=== PATIENT | female | born 1955 | race Hispanic/Latino ===

== ENCOUNTER 2018-08-05 07:31 | Day surgery (SDC) | payer OTHER ==
[2018-08-04 15:12] VITALS: BP 143/73
[~2018-08-05] VITALS: Ht 161.3 cm; Wt 104.3 kg
[2018-08-05] VITALS (15 sets, daily range): BP systolic 118–140; BP diastolic 61–75
[~2018-08-05 07:31] MED LIST: ATOR40TA69 PO; CEFAZOLIN 3GM /D5W 100ML 100 ML IV SCH; FISH OIL PO; METF-444 PO; METO50TA18 PO; OMEP20CA10 PO; VITAMIN E PO
--- NOTE | 2018-08-05 09:05 | NUR ---
POTENTIAL FOR INFECTION: NO SHAVING NEEDED TO LEFT SHOULDER / UPPER ARM VOICED PER JAYSON STEIN MA. WIPED LEFT SHOULDER / UPPER ARM WITH ANISH: 2% CHLORHEXIDINE GLUCONATE CLOTH PATIENTS PRE-OP SKIN PREP PER JAYSON STEIN MA.
[2018-08-05] MEDS ORDERED: LIDOCAINE PF 2% 5ML ABBOJECT ONE (10:30)
[2018-08-05] MEDS ORDERED: ROPIVACAINE 0.5% 5MG/ML 30ML IJ ONE ×2 (10:30→10:35)
[2018-08-05] MEDS ORDERED: SODIUM CHLORIDE 0.9% 1000ML 1,000 ML IV ONE (10:30)
[2018-08-05] MEDS ORDERED: ROCURONIUM 10MG/1ML SYR 10 MG/ML ML ONE ×2 (10:31→12:24)
[2018-08-05] MEDS ORDERED: PROPOFOL 10 MG/ML 20ML VIAL IV ONE (10:31)
[2018-08-05] MEDS ORDERED: MIDAZOLAM HCL 1 MG/ML 2ML VIAL ONE (10:31)
[2018-08-05] MEDS ORDERED: FENTANYL CITRATE PF 50 MCG/1 ML 2ML VIAL ONE (10:31)
[2018-08-05] MEDS: CEFAZOLIN SODIUM 1 GM VIAL ONE ×2 (10:45→11:45)
[2018-08-05] MEDS ORDERED: EPINEPHRINE 1 MG/ML 30ML VIAL IJ ONE (10:54)
[2018-08-05] MEDS ORDERED: DEXAMETHASONE SOD PHOSPHATE 10MG/ML 1ML VIAL ONE (11:39)
[2018-08-05] MEDS ORDERED: CHOL500050 PO (12:22)
[2018-08-05] MEDS ORDERED: ICOS1CAP PO (12:22)
[2018-08-05] MEDS ORDERED: EPHEDRINE SULFATE 50 MG/ML AMPULE ONE (12:24)
[2018-08-05] MEDS ORDERED: NEOSTIGMINE 5MG/5ML SYR IV ONE (12:29)
[2018-08-05] MEDS ORDERED: GLYCOPYRROLATE 1 MG/5 ML SYRINGE ONE (12:29)
[2018-08-05] MEDS ORDERED: ONDANSETRON HCL 4 MG/2 ML VIAL ONE (12:29)
[2018-08-05] MEDS ORDERED: KETOROLAC TROMETHAMINE 30MG/ML ONE (13:58)
[2018-08-05] MEDS ORDERED: CEPH500B PO (14:01)
[2018-08-05] MEDS ORDERED: HYDR-4457 PO (14:01)
[2018-08-05] MEDS ORDERED: NAPR-1192 PO (14:01)
[2018-08-05] MEDS ORDERED: MEPERIDINE-PF 25 MG/ML SYG ONE (14:35)
--- NOTE | 2018-08-05 15:49 | NUR ---
D/C PT. LEFT VIA WHEELCHAIR IN PVT CAR WITH . PT. GIVEN ALL HER BELONGINGS AND RX SCRIPT GIVEN TO . NO PAIN UPON D/C
== END 2018-08-05 15:30 ==
LOC: DAH 07:31
PROVIDERS: ATTEND Orthopaedic Surgery
DX: S46.012A Strain of muscle(s) and tendon(s) of the rotator cuff of left shoulder, initial encounter (principal); E78.5 Hyperlipidemia, unspecified; I10 Essential (primary) hypertension; E11.9 Type 2 diabetes mellitus without complications; K21.9 Gastro-esophageal reflux disease without esophagitis; Z98.890 Other specified postprocedural states; Z82.49 Family history of ischemic heart disease and other diseases of the circulatory system; Z96.651 Presence of right artificial knee joint; Z79.84 Long term (current) use of oral hypoglycemic drugs; Z79.899 Other long term (current) drug therapy; E66.01 Morbid (severe) obesity due to excess calories; Z91.040 Latex allergy status; X58.XXXA Exposure to other specified factors, initial encounter
CPT/HCPCS: 29824; 29826; 29827; 64415; 82948 ×2; A4565; A4600; A4649 ×5; A6204; C1713; G0168; J0171; J0690; J1100; J1885; J2001; J2175; J2250; J2405; J2704; J2710; J2795 ×2; J3010; J3490 ×2; J7030 ×2